=== PATIENT | male | born 1995 | race Two or more races ===

== ENCOUNTER 2022-02-14 14:58 | Emergency (ER) | payer MEDICAID ==
[~2022-02-14] VITALS: Ht 177.8 cm; Wt 73.0 kg
[2022-02-14] MEDS ORDERED: LIDOCAINE 5% PATCH TOP ONE (16:45)
[2022-02-14] MEDS ORDERED: MORPHINE SULFATE 10 MG/ML CPJ IM ONE (16:45)
[2022-02-14 17:42] VITALS: BP 142/91
[2022-02-14 17:43] LABS: CLARITY URINE TURBID (CLEAR); COLOR URINE YELLOW (YELLOW); KETONES URINE TRACE (NEGATIVE); LEUKOCYTE ESTERASE URINE NEGATIVE (NEGATIVE); NITRITE URINE NEGATIVE (NEGATIVE); OCCULT BLOOD URINE NEGATIVE (NEGATIVE); PROTEIN URINE TRACE (NEGATIVE); SPECIFIC GRAVITY URINE 1.028 (1.005-1.030)
[2022-02-14 17:50] LABS: CHLORIDE 106 mEq/L (98-107)
[2022-02-14 17:57] LABS: BASOPHILS % 3.9 % (0.0-2.0); EOSINOPHILS % 4.6 % (0.0-5.0); HEMATOCRIT. 44.8 % (42.0-52.0); HEMOGLOBIN. 14.9 g/dL (14.0-18.0); LYMPHOCYTES % 44.1 % (20.0-50.0); MEAN CORPUSCULAR HEMOGLOBIN 29.3 pg (28.0-32.0); MEAN CORPUSCULAR VOLUME 87.8 fL (80.0-94.0); MEAN PLATELET VOLUME 8.4 fl (7.4-10.4); MONOCYTES % 7.3 % (2.0-8.0); NEUTROPHILS % 40.1 % (40.0-76.0); PLATELET 281 x1000/uL (130-400); RED CELL DISTRIBUTION WIDTH 14.6 % (11.6-14.6)
[2022-02-14] MEDS ORDERED: LIDO700A15 TP (18:41)
[2022-02-14] MEDS ORDERED: BACL-141 MT (18:41)
[2022-02-14] MEDS ORDERED: IBUP-2029 MT (18:41)
== END 2022-02-14 19:01 | disposition home or self-care (01) ==
LOC: ER 14:58
DX: M62.830 Muscle spasm of back (principal); M51.37 Other intervertebral disc degeneration, lumbosacral region; R03.0 Elevated blood-pressure reading, without diagnosis of hypertension
CPT/HCPCS: 36415; 74176; 80053; 81003; 83690; 85025; 96372; 99284; J2270

== ENCOUNTER 2022-03-22 11:05 | Emergency (ER) | payer MEDICAID ==
[~2022-03-22] VITALS: Ht 177.8 cm; Wt 78.0 kg
[~2022-03-22 11:05] MED LIST: BACL-141 MT; IBUP-2029 MT; LIDO700A15 TP
[2022-03-22 11:13] VITALS: BP 148/94
[2022-03-22] MEDS ORDERED: IBUPROFEN 600MG TABLET PO STA (12:45)
[2022-03-22] MEDS ORDERED: NAPR-681 PO ×3 (14:28→14:42)
== END 2022-03-22 14:47 | disposition home or self-care (01) ==
LOC: ER 11:37
DX: S40.212A Abrasion of left shoulder, initial encounter (principal); S60.811A Abrasion of right wrist, initial encounter; J45.909 Unspecified asthma, uncomplicated; Z88.2 Allergy status to sulfonamides; V23.4XXA Motorcycle driver injured in collision with car, pick-up truck or van in traffic accident, initial encounter; Y93.89 Activity, other specified; Y92.89 Other specified places as the place of occurrence of the external cause; Y99.8 Other external cause status
CPT/HCPCS: 73030; 73110; 99284

== ENCOUNTER 2022-12-23 20:56 | Emergency (ER) | payer MEDICAID ==
[~2022-12-23] VITALS: Ht 177.8 cm; Wt 77.9 kg
[~2022-12-23 20:56] MED LIST changes: +NAPR-681 PO
[2022-12-23] MEDS ORDERED: AMOXICILLIN/POTASSIUM CLAVULANATE 875/125MG TAB PO ONE (22:45)
[2022-12-23] MEDS ORDERED: TETANUS, DIPHTHERIA, PERTUSSIS VAC/PF 0.5ML (>10YR OLD) IM ONE (23:00)
[2022-12-23] MEDS ORDERED: AMOX1TAB16 MT (23:21)
[2022-12-23 23:49] VITALS: BP 138/72
== END 2022-12-23 23:51 | disposition home or self-care (01) ==
LOC: ER 20:56
DX: K02.9 Dental caries, unspecified (principal); S51.852A Open bite of left forearm, initial encounter; W50.3XXA Accidental bite by another person, initial encounter; Y93.89 Activity, other specified; Y92.89 Other specified places as the place of occurrence of the external cause; Y99.8 Other external cause status; J45.909 Unspecified asthma, uncomplicated
CPT/HCPCS: 90471; 90715; 99283

== ENCOUNTER 2024-06-02 07:50 | Emergency (ER) | payer MEDICAID ==
[~2024-06-02] VITALS: Ht 180.3 cm; Wt 80.0 kg
[~2024-06-02 07:50] MED LIST changes: +AMOX1TAB16 MT
[2024-06-02 08:25] VITALS: O2SAT 98
[2024-06-02] MEDS ORDERED: METH-653 MT (08:40)
[2024-06-02] MEDS ORDERED: IBUP-2029 MT (08:40)
[2024-06-02] MEDS: KETOROLAC 30MG/ML VIAL IM ONE (09:36)
[2024-06-02] MEDS: METHOCARBAMOL 500MG TABLET PO ONE (09:37)
[2024-06-02 09:39] VITALS: BP 153/76; PULSE 85; RESP 16; TEMP 36.83628; O2SAT 99
== END 2024-06-02 09:42 | disposition home or self-care (01) ==
LOC: ER 07:50
DX: S33.5XXA Sprain of ligaments of lumbar spine, initial encounter (principal); J45.909 Unspecified asthma, uncomplicated; Z88.1 Allergy status to other antibiotic agents; Z88.2 Allergy status to sulfonamides; Z79.899 Other long term (current) drug therapy; X58.XXXA Exposure to other specified factors, initial encounter; Y93.89 Activity, other specified; Y92.89 Other specified places as the place of occurrence of the external cause; Y99.8 Other external cause status
CPT/HCPCS: 99283; 96372; J1885